=== PATIENT | female | born 1990 | race Two or more races ===

== ENCOUNTER 2024-08-06 05:23 | Emergency (ER) | payer SELFPAY ==
[2024-08-06] VITALS (9 sets, daily range): BP systolic 94–111; BP diastolic 57–75; PULSE 70–85; RESP 16–20; TEMP 36.5–36.9; O2SAT 96–100; BMI 24.6
--- NOTE | 2024-08-06 05:33 | EKG_ITS ---
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
--- NOTE | 2024-08-06 05:37 | XR_ITS ---
Examination: AP chest single view Technique one AP portable upright chest single view Exam date and time: August 06, 2024 0609 hrs. Comparison September 26, 2023 Indications: Chest pain beginning 2 days ago. Findings: Reduced inspiration No significant cardiac enlargement No pneumonia or pulmonary edema Impression: Poor inspiratory effort chest x-ray
--- NOTE | 2024-08-06 05:39 | PD.EDRME ---
Rapid Medical Screening Exam RME Arrival date/time: 08/06/24 05:23 Chief Complaint: Chest Pain RME Narrative: 34-year-old female with intermittent chills, subjective fever, and lightheadedness today. EKG: No STEMI/blocks. I have greeted and performed a focused initial assessment of this patient. A comprehensive ED assessment and evaluation of the patient, analysis of all test results, and completion of the medical decision making process will be conducted by additional ED providers.
[2024-08-06] MEDS: ONDANSETRON INJ 2 MG/ML INJ 2 ML 4 MG IV (05:44)
[2024-08-06] MEDS: SODIUM CHLORIDE 0.9% 1000 ML 1,000 ML 999 ML IV (05:44)
[2024-08-06 06:12] LABS: Basophils % (Auto) 0 % (0-2.5); Eosinophils # (Auto) 0.5 Thou/mm3 (0.0-0.5); Eosinophils % (Auto) 5 % (0-10); Hemoglobin 11.9 g/dL (12.0-16.0); Immature Granulocytes % (Auto) 0 % (0-0); Immature Granulocytes Auto 0.04 Thou/mm3 (0.00-0.00); Lymphocytes # (Auto) 2.3 Thou/mm3 (1.0-4.8); Lymphocytes % (Auto) 24 % (10-50); Mean Corpuscular HGB Conc 33.1 g/dl (31.0-37.0); Mean Corpuscular Hemoglobin 27.7 pg (25.0-35.0); Mean Corpuscular Volume 84 fL (80-100); Monocytes # (Auto) 0.5 Thou/mm3 (0.0-0.8); Monocytes % (Auto) 5 % (0-12); Neutrophils # (Auto) 6.5 Thou/mm3 (1.8-7.7); Neutrophils % (Auto) 66 % (37-80); Nucleated Red Blood Cell % 0 /100 WBC (0); Platelet Count 270 Thou/mm3 (140-440); RDW Standard Deviation 42.3 fL (36.4-46.3); White Blood Count 9.8 Thou/mm3 (3.6-11.0)
[2024-08-06 06:26] LABS: Alanine Aminotransferase 28 U/L (10-49); Albumin, Serum 4.5 gm/dL (3.5-5.0); Albumin/Globulin Ratio 1.7 (1.2-2.2); Alkaline Phosphatase 103 U/L (46-116); Anion Gap 11 (7-16); Aspartate Amino Transferase 49 U/L (0-34); BUN/Creatinine Ratio 37 Ratio (12-20); Bilirubin,Total 0.4 mg/dL (0.3-1.2); Blood Urea Nitrogen 26 mg/dL (9-23); Calcium 9.1 mg/dL (8.3-10.6); Calcium (Corrected) 9.1 mg/dL (8.5-10.1); Carbon Dioxide 21.9 mMol/L (20.0-31.0); Chloride 106 mMol/L (98-107); Creatinine (Component) 0.7 mg/dL (0.6-1.3); Globulin 2.6 gm/dL (2.3-3.5); Glucose 117 mg/dL (74-106); Osmolality,Calculated 283 (275-295); Potassium 3.6 mMol/L (3.4-5.1); Sodium 139 mMol/L (136-145); Total Protein 7.1 gm/dL (5.7-8.2); Troponin I < 0.002 ng/mL (0.0-0.045); eGFR > 60 See Note
[2024-08-06 06:42] LABS: B-Type Natriuretic Peptide < 20 pg/mL (0-100)
[2024-08-06 08:56] LABS: HCG Qualitative,Urine Negative
--- NOTE | 2024-08-06 10:16 | EDNOTE_ITS ---
ED General RME/HPI General Chief complaint: Chest Pain Stated complaint: CHEST PAIN Time Seen by Provider: 08/06/24 05:50 Arrival date/time: 08/06/24 05:23 RME / HPI RME / HPI narrative: Chief complaint: 08/06/24 05:23 Chest pain, subjective fever, and fainting HPI: Patient is a 34-year-old female with chest pain, subjective fever, and fainting around 4:50 am this morning. Patient woke up to use the restroom and had severe shortness of breath, with a feeling of heaviness in the center of her chest. She has never had these symptoms in the past. Patient describes her pain as dull, achy and 3/10 at rest in the ER. When she had the episode around 5 AM her pain was 8/10, and she had associated diaphoresis and felt like she was about to pass out. As per present at bedside, patient was drenched in sweat, panting and was short of breath. Patient does not recall passing out, has been denies any loss of consciousness. She started experiencing flu-like symptoms around 2:30 PM yesterday 08/05, currently has congestion, postnasal drip and some headache. She denies any cough, fevers or chills or other systemic symptoms. She states her pain is reproducible when she presses in the middle of her chest. Allergies: NKFDA Social history: Marital?Status:? Tobacco?Use:?Denies ETOH?Use:?Denies Drug?Note:?Denies Social?History?Note:?Lives?at home with?family Family history: Denies any family history of sudden cardiac , stroke or cancers L Related Data Previous Rx's ?Medication ?Instructions ?Recorded acetaminophen 500 mg tablet 1,000 mg (2 x 500 mg) PO Q6H PRN 08/06/24 fever or pain #10 tabs guaifenesin 600 mg tablet, 600 mg PO BID PRN congestion #20 08/06/24 extended release 12 hr (Mucinex) tabs oseltamivir 75 mg capsule (Tamiflu) 75 mg PO QDAY 5 days #5 caps 08/06/24 Allergies Allergy/AdvReac Type Severity Reaction Status Date / Time No Known Allergies Allergy Verified 03/23/24 14:47 Review of Systems Review of Systems Narrative Review of Systems: GENERAL: Denies fevers/chills or diaphoresis. HEENT: Denies headache or visual/hearing changes. Denies nasal discharge. NEURO: Denies unusual weakness or difficulty speaking. Dizziness/fainting CARDIO: central sharp, reproducible chest pain , denies palpitations. PULM: Denies SOB, coughing, or wheezing. GI: intermittent epigastric abdominal pain, nausea but denies any V/C/D. Reports having BMs URO: Denies burning/itching/pain/urinary changes. 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 MSK/EXT/SKIN: Denies joint/skeletal/muscle pain, issues/changes in upper or lower extremities, itchiness, or superficial pain. PSYCH: Cooperative, pleasant mood & affect. The rest of the review of systems is otherwise negative. ED Exam Narrative Physical exam: Constitutional Alert, oriented x4, in mild comfort HEENT Vision grossly intact. Patent nares. Trachea midline. On RA Respiratory Chest normal on inspection and soft crackles on auscultation bi-basal. Central chets wall tenderness, reproducible pain. Cardiovascular S1 and S2 audible, RRR. No murmurs or carotid bruit. No gross JVD. Abdominal Soft, non tender to palpation in all quadrants. Surgical scar- cholecystectomy, appendectomy. BS + Genitourinary No bladder tenderness, no flank pain. Normal to palpation. Musculoskeletal Extremities tone within normal limits. No LE edema. Neurological CN II - XII grossly intact. Extremity motor and sensation grossly intact. Skin Warm, dry and intact. No apparent lesions. Psychiatric Patient has a good affect, is cooperative. Course Course Course Narrative: EKG: Sinus rhythm, HR [address] changes CXR: No pneumonia or acute findings. Quality Measures none Orders Category Date Time Status Bedside Influenza A&B Antigen Test NOW Care 08/06/24 05:52 Completed Bedside Influenza A&B Antigen Test NOW Care 08/06/24 11:24 Completed EKG (ED ONLY) *Do not use* NOW Care 08/06/24 05:33 Completed Miscellaneous Nursing Order NOW Care 08/06/24 11:26 Completed CXRP [XR chest 1V portable] Stat Exams 08/06/24 05:37 Completed EKG (ED Only) Stat Exams 08/06/24 05:33 Draft BNP [B-Type Natriuretic Peptide] Stat Lab 08/06/24 05:42 Completed CBC Stat Lab 08/06/24 05:42 Completed CMP [Comprehensive Metabolic Panel] Stat Lab 08/06/24 05:42 Completed HCG Qualitative,Urine Stat Lab 08/06/24 08:20 Completed Troponin I Stat Lab 08/06/24 05:42 Completed Ondansetron Inj [Zofran Inj] Med 08/06/24 05:39 Discontinued 4 mg IV X1 ONE Ringers Lactated 500 ml [Lactated Ringers] 500 ml Med 08/06/24 11:26 Discontinued IV 999 mls/hr Sodium Chloride 0.9% 1000 ml [Ns] 1,000 ml Med 08/06/24 05:39 Discontinued IV 999 mls/hr Vital Signs Vital signs: Vital Signs Temperature 98.3 F 08/06/24 05:38 Pulse Rate 78 08/06/24 05:38 Respiratory Rate 20 08/06/24 05:38 Blood Pressure 95/58 L 08/06/24 05:38 Pulse Oximetry (%) 96 08/06/24 05:38 Oxygen Delivery Method Room Air 08/06/24 05:38 [facility] Patient data External records reviewed:: [facility] previous records Clinical information provided by:: patient Social determinants that could affect healthcare access:: none Patient has the following chronic illnesses:: Nil How is presenting disease/condition affected by chronic disease/condition?: no chronic disease Evaluation data The following diagnostics were reviewed and interpreted by me:: lab results, radiology exam(s) and EKG tracing(s) Lab and/or radiology exams considered but not ordered:: CTA Chest Interpretation Summary: Chest pain from intercostal muscle strain due to viral infection/congestion. Medications Medications considered but not ordered:: Morphine Medication administrations:: Medication Administration History Discontinued Medications Sodium Chloride (Ns) 1,000 mls @ 999 mls/hr IV .Q1H1M ONE Stop: 08/06/24 06:39 Last Infusion: 08/06/24 06:45 Dose: Infused Documented By: Admin: 08/06/24 05:44 Dose: 999 mls/hr Documented By: RADHA Lactated Ringer's (Lactated Ringers) 500 mls @ 999 mls/hr IV .Q31M ONE Stop: 08/06/24 11:56 Last Infusion: 08/06/24 14:23 Dose: Infused Documented By: Admin: 08/06/24 13:17 Dose: 999 mls/hr Documented By: ABIMAEL Ondansetron HCl (Ondansetron Inj 2 Mg/Ml Inj 2 Ml) 4 mg IV X1 ONE; Protocol Stop: 08/06/24 05:40 Last Admin: 08/06/24 05:44 Dose: 4 mg Documented By: RADHA Symptoms control Consultations Consultation(s) initiated? (list below): No Diagnosis Differential Diagnosis ED Complaint MDM: pneumonia Most likely diagnosis given after review of the tests above:: Chest pain from intercostal muscle strain due to viral infection/congestion. Admission Indicated Admission indicated?: not indicated Explain why admission is indicated or not indicated:: Symptoms resolved Admission Request Was there a request for admission?: No Disposition Plan Disposition Plan: Discharge Discharge Attestation Discharge Attestation: The patient and all family members were given an opportunity to ask questions and understood the discharge instructions. Discharge instructions specifically effects, indications for sooner follow up or return to the emergency department, and the expected course of current diagnosis. Patient condition: Stable Medical Decision Making MDM Narrative MDM Narrative: Patient is a young, healthy 34 year old female, who was admitted for chest pain and SOB. her symptoms resolved in the ER, with just snasal congestion notable, no SOB. CXR negative for any acute findings. Discharge plan: - Tamiflu daily for 5 days - Take tylenol 1g every 6 hours for fever/bodyaches - May take mucinex as needed for congestion - return to ER if symptoms worsen Differential Diagnosis Differential Diagnosis: pneumonia Lab Data 08/06/24 05:42 08/06/24 05:42 Labs: Lab Results 08/06/24 08/06/24 Range/Units 05:42 08:20 WBC 9.8 (3.6-11.0) Thou/mm3 RBC 4.30 (4.00-5.20) Miln/mm3 Hgb 11.9 L (12.0-16.0) g/dL Hct 36.0 (36.0-46.0) % MCV 84 (80-100) fL MCH 27.7 (25.0-35.0) pg MCHC 33.1 (31.0-37.0) g/dl RDW Std Deviation 42.3 (36.4-46.3) fL Plt Count 270 (140-440) Thou/mm3 Neut % (Auto) 66 (37-80) % Lymph % (Auto) 24 (10-50) % [place] % (Auto) 5 (0-12) % Eos % (Auto) 5 (0-10) % Baso % (Auto) 0 (0-2.5) % Neut # (Auto) 6.5 (1.8-7.7) Thou/mm3 Lymph # (Auto) 2.3 (1.0-4.8) Thou/mm3 [place] # (Auto) 0.5 (0.0-0.8) Thou/mm3 Eos # (Auto) 0.5 (0.0-0.5) Thou/mm3 Baso # (Auto) 0.0 (0.0-0.2) Thou/mm3 Immature Gran # (Auto) 0.04 H (0.00-0.00) Thou/mm3 Absolute Nucleated RBC 0.00 (0.00-0.00) Thou/mm3 Immature Gran % 0 (0-0) % Nucleated RBC % 0 (0) /100 WBC Sodium 139 (136-145) mMol/L Potassium 3.6 (3.4-5.1) mMol/L Chloride 106 (98-107) mMol/L Carbon Dioxide 21.9 (20.0-31.0) mMol/L Anion Gap 11 (7-16) BUN 26 H (9-23) mg/dL Creatinine 0.7 (0.6-1.3) mg/dL Estim Creat Clear Calc 100.0 (>60) mL/min eGFR > 60 (60 - ) See Note BUN/Creatinine Ratio 37 H (12-20) Ratio Glucose 117 H (74-106) mg/dL Calculated Osmolality 283 (275-295) Calcium 9.1 (8.3-10.6) mg/dL Corrected Calcium 9.1 (8.5-10.1) mg/dL Total Bilirubin 0.4 (0.3-1.2) mg/dL AST 49 H (0-34) U/L ALT 28 (10-49) U/L Alkaline Phosphatase 103 (46-116) U/L Troponin I < 0.002 (0.0-0.045) ng/mL B-Natriuretic Peptide < 20 (0-100) pg/mL Total Protein 7.1 (5.7-8.2) gm/dL Albumin 4.5 (3.5-5.0) gm/dL Globulin 2.6 (2.3-3.5) gm/dL Albumin/Globulin Ratio 1.7 (1.2-2.2) Urine HCG, Qual Negative Discharge Plan Plan Patient Disposition: HOME (Self Care) Patient condition on transfer: Stable Prescriptions/Referrals Prescriptions/Med Rec: New acetaminophen 500 mg tablet 1,000 mg PO Q6H PRN (Reason: fever or pain) Qty: 10 0RF guaifenesin [Mucinex] 600 mg tablet extended release 12hr 600 mg PO BID PRN (Reason: congestion) Qty: 20 0RF oseltamivir [Tamiflu] 75 mg capsule 75 mg PO QDAY 5 Days Qty: 5 0RF Referrals: Luis A Griffin MD [Primary Care Provider] - In 1 week Problem List Clinical Impression: Chest pain, Intercostal muscle strain Patient/Caregiver Discharge Instructions Other Activity Instructions:: Discharge plan: - Tamiflu daily for 5 days - Take tylenol 1g every 6 hours for fever/bodyaches - May take mucinex as needed for congestion - return to ER if symptoms worsen Print Language: Syriac Stand Alone Forms: Radha Award Info., Patient Portal Info Letter MD Attestation Attestation The patient was seen by the PGY-2. I, the supervising physician, also encountered and examined the patient and remained throughout present during the entire ER visit. Deliberation with the PGY 2, workup, management, treatment, medical decision making, and documentation was formulated. I agree with the plan and documentation.
[2024-08-06] MEDS: RINGERS LACTATED 500 ML 500 ML 999 ML IV (13:17)
== END 2024-08-06 14:42 | disposition home or self-care (01) ==
PROVIDERS: Emergency Medicine; Emergency Provider Emergency Medicine; PCP Family Medicine
DX: S29.011A Strain of muscle and tendon of front wall of thorax, initial encounter (principal); X58.XXXA Exposure to other specified factors, initial encounter
CPT/HCPCS: 36415; 71045; 80053; 81025; 83880; 84484; 85025; 87400; 93005; 96361; 96374; 99284; J2405; J7030; J7120